=== PATIENT | male | born 1950 | race Caucasian/White ===

== ENCOUNTER 2021-07-20 15:38 | Emergency (ER) | payer BC, MEDICARE ==
[2021-07-20 16:06] VITALS: BP 142/68; PULSE 72
[2021-07-20] MEDS ORDERED: Take Home: Ondansetron 4 MG Tab.DIS, 2 Tab Pack PO ONE (16:31)
[2021-07-20] MEDS ORDERED: Take Home: Azithromycin 250 MG, 2 Tab Pack PO ONE (16:31)
--- NOTE | 2021-07-20 16:36 | EDM.PDOC ---
ED HPI GENERAL MEDICAL PROBLEM - General Chief Complaint: General Stated Complaint: n/v Time Seen by Provider: 07/20/21 16:15 Source of Information: Reports: Patient History Limitations: Reports: No Limitations - History of Present Illness INITIAL COMMENTS - FREE TEXT/NARRATIVE: Javan is a 71 year old male who presents to ER with concerns of chest congestion, nausea and diarrhea. States was down in [place] at [facility] for many days while visiting his brother who was hospitalized there. Feels he "picked up a bug there" and now has progressively felt worse all week. Had loose stools at times earlier in the week but is now after every time he eats something, frequent and watery in nature. Has only been able to tolerate water and toast for the last 24 hours. Admits that his chest is congested, has had a productive cough of white phlegm. Low grade temps at times. No vomiting but feels as if he could at times. No sinus congestion or sore throat. Denies urinary conc erns. Onset: Gradual Duration: Day(s):, Getting Worse Location: Reports: Chest, Abdomen Quality: Reports: Ache Severity: Mild Improves with: Reports: None Worsens with: Reports: Eating Associated Symptoms: Reports: Cough, cough w sputum, Fever/Chills, Loss of Appetite, Malaise, Nausea/Vomiting. Denies: Chest Pain, Shortness of Breath, Weakness - Related Data Allergies Allergy/AdvReac Type Severity Reaction Status Date / Time No Known Allergies Allergy Verified 02/22/14 09:55 Home Meds: Home Meds Azithromycin [Zithromax] 250 mg PO DAILY #4 tablet 07/20/21 [Rx] Past Medical History - Past Health History Medical/Surgical History: Denies Medical/Surgical History - Past Surgical History Male Surgical History: Reports: Nephrectomy Social & Family History - Family History Family Medical History: No Pertinent Family History - Tobacco Use Tobacco Use Status *Q: Current Every Day Tobacco User Years of Tobacco use: 1 Packs/Tins Daily: 50 ED ROS GENERAL - Review of Systems Review Of Systems: See Below Constitutional: Reports: Fever, Chills, Malaise, Decreased Appetite. Denies: Fatigue HEENT: Reports: Rhinitis. Denies: Ear Pain, Sinus Problem, Throat Pain Respiratory: Reports: Cough, Sputum. Denies: Shortness of Breath Cardiovascular: Denies: Chest Pain, Edema, Lightheadedness Endocrine: Denies: Fatigue GI/Abdominal: Reports: Diarrhea, Nausea. Denies: Abdominal Pain, Vomiting : Reports: No Symptoms Musculoskeletal: Reports: No Symptoms Skin: Reports: No Symptoms Neurological: Reports: No Symptoms ED EXAM, GENERAL - Physical Exam Exam: See Below Exam Limited By: No Limitations General Appearance: Alert, WD/WN, No Apparent Distress Ears: Normal External Exam, Normal TMs Nose: Normal Inspection, Normal Mucosa, Nasal Drainage Throat/Mouth: Normal Inspection, Other (posterior pharynx pink with thick postnasal drainage noted) Head: Normocephalic Neck: Normal Inspection, Supple, Non-Tender Respiratory/Chest: No Respiratory Distress, Rhonchi Cardiovascular: Regular Rate, Rhythm, No Edema GI/Abdominal: Normal Bowel Sounds, Soft, Non-Tender Extremities: Normal Inspection, No Pedal Edema Neurological: Alert, Oriented Skin Exam: Warm, Dry Course - Vital Signs Last Recorded V/S: Last Vital Signs Temp 97.2 F 07/20/21 15:50 Pulse 72 07/20/21 15:50 Resp 18 07/20/21 15:50 BP 142/68 H 07/20/21 15:50 Pulse Ox 99 07/20/21 15:50 - Orders/Labs/Meds Orders: Active Orders 24 hr Category Date Time Status Isolation [COMM] Routine Oth 07/20/21 15:45 Active Labs: Laboratory Tests 07/20/21 Range/Units 15:50 SARS CoV-2 RNA Rapid JOSE LUIS Negative (NEGATIVE) Meds: Medications Discontinued Medications Generic Name Dose Route Start Last Admin Trade Name Swetha PRN Reason Stop Dose Admin Azithromycin 1 packet 07/20/21 16:31 Take Home: Azithromycin 250 Mg, 2 Tab Pack PO 07/20/21 16:32 ONETIME ONE Ondansetron HCl 2 packet 07/20/21 16:31 Take Home: Ondansetron 4 Mg Tab.Dis, 2 Tab Pack PO 07/20/21 16:32 ONETIME ONE - Re-Assessments/Exams Free Text/Narrative Re-Assessment/Exam: 07/20/21 Covid, influenza testing negative Departure - Departure Time of Disposition: 16:33 Disposition: Home, Self-Care 01 Condition: Good Clinical Impression: Bronchitis, Diarrhea - Discharge Information *PRESCRIPTION DRUG MONITORING PROGRAM REVIEWED*: No *COPY OF PRESCRIPTION DRUG MONITORING REPORT IN PATIENT KAITLYNN: No Prescriptions: Azithromycin [Zithromax] 250 mg PO DAILY #4 tablet Instructions: Diarrhea, Adult, [id number], Acute Bronchitis, Adult Forms: ED Department Discharge Additional Instructions: 1. Push fluids, try water or gatorade 2. [place] diet~ consider banana, rice, applesauce and toast 3. Zofran 4 mg under tongue as needed for nausea, allow you to eat 4. Zithromax 250 mg- 2 tabs today, 1 tab daily for 4 days 5. Immodium as directed 6. Follow up in clinic if persisting concerns. Sepsis Event Note (ED) - Evaluation Sepsis Screening Result: No Definite Risk - Focused Exam Vital Signs: Vital Signs Temp Pulse Resp BP Pulse Ox 07/20/21 15:50 97.2 F 72 18 142/68 H 99
== END 2021-07-20 17:00 | disposition home or self-care (01) ==
LOC: CC.ED 15:38
DX: J40 Bronchitis, not specified as acute or chronic (principal); R19.7 Diarrhea, unspecified; Z72.0 Tobacco use; Z20.822 Contact with and (suspected) exposure to COVID-19
CPT/HCPCS: 87804; 99284; A9270; U0002

== ENCOUNTER 2023-11-20 16:03 | Emergency (ER) | payer MEDICARE ==
[2023-11-20] MEDS: Aspirin 81 MG Tab.Chew PO ONE (16:22)
[2023-11-20 16:25] LABS: BASOPHILS ABSOLUTE AUTO 0.03 10^3/uL (0.00-0.50); BASOPHILS PERCENT AUTO 0.4 % (0-1); EOSINOPHILS ABSOLUTE AUTO 0.17 10^3/uL (0.00-1.50); EOSINOPHILS PERCENT AUTO 2.1 % (0-6); HEMATOCRIT 43.3 % (42.0-52.0); HEMOGLOBIN 14.3 g/dL (14.0-18.0); IMMATURE GRAN ABSOLUTE AUTO 0.02 10^3/uL (0.00-0.49); IMMATURE GRAN PERCENT AUTO 0.2 % (0.0-4.9); LYMPHOCYTES ABSOLUTE AUTO 1.69 10^3/uL (0.60-5.00); LYMPHOCYTES PERCENT AUTO 20.8 % (24-44); MEAN CORPUSCULAR HEMOGLOBIN 30.6 pg (27.0-32.0); MEAN CORPUSCULAR VOLUME 92.7 fL (83.0-97.0); MONOCYTES ABSOLUTE AUTO 0.72 10^3/uL (0.00-1.50); MONOCYTES PERCENT AUTO 8.9 % (0-10); NEUTROPHILS ABSOLUTE AUTO 5.48 x10^3/uL (1.80-8.00); NEUTROPHILS PERCENT AUTO 67.6 % (41-71); PLATELET COUNT,PLT 235 10^3/uL (150-400); RED BLOOD CELL COUNT 4.67 x10^6/uL (4.50-6.00); WHITE BLOOD CELL COUNT,WBC 8.1 10^3/uL (4.0-11.0)
[2023-11-20 16:40] LABS: ALBUMIN 3.7 g/dL (3.4-5.0); BILIRUBIN TOTAL 0.4 mg/dL (0.0-1.0); CALCIUM 8.4 mg/dL (8.4-10.1); CREATININE 1.3 mg/dL (0.7-1.3); EST CRCL DRUG DOSING (CG) 45.14 mL/min; MAGNESIUM 2.5 mg/dL (1.8-2.4); POTASSIUM,K 4.4 mEq/L (3.5-5.0); PROTEIN TOTAL,TP 7.4 g/dL (6.4-8.2)
[2023-11-20] MEDS: Morphine 4 MG/ML VIAL IVPUSH ONE (17:04)
[2023-11-20] MEDS: Heparin Sodium/0.45% NaCl 500 ML IV SCH (17:07)
[2023-11-20] MEDS: Heparin Sodium 5,000 Units/ML Vial IVPUSH ONE (17:14)
[2023-11-20] MEDS: Ondansetron 4 MG/2 ML SDV IVPUSH STA (17:18)
[2023-11-20 18:56] VITALS: PULSE 69
[2023-11-20 18:58] VITALS: BP 158/90
== END 2023-11-20 19:15 ==
LOC: CC.ED 16:03
DX: I21.4 Non-ST elevation (NSTEMI) myocardial infarction (principal); F17.210 Nicotine dependence, cigarettes, uncomplicated
CPT/HCPCS: 36415; 71045; 80053; 83735; 84484; 85025; 85379; 85730; 93005; 93010; 96365; 96366; 96375; 99284; 99285-25; A9270-GY; J1644; J2270; J2405